=== PATIENT | female | born 1970 | race Caucasian/White ===

== ENCOUNTER → 2017-08-04 | Outpatient (CLI) | payer OTHER ==
[~2017-08-04] MED LIST: AZELASTINE137 MCG/0.; BREO IH; CETIRIZINE HCL10 MG; LEVOTHYROXINE50 MCG PO; MONTELUKAST; PROBIOTIC & AC1 EACH; RANITIDINE HCL150 MG; TRIAMTERENE; VENTOLIN HFA18 GM INH; VITAMIN D35000 UNIT
--- NOTE | 2017-08-04 15:25 | Diagnostic Imaging Report ---
PROCEDURE:X-RAY MODIFIED BARIUM SWALLOW COMPARISON:None. INDICATIONS:Dysphagia DISCUSSION:Fluoroscopic examination was performed in conjunction with speech pathology, during swallowing of a variety of thin and thick liquid consistencies. Examination showed premature spillage to the vallecula and piriform sinus with thin portion of mixed consistency. No aspiration or penetration was noted. No vallecula, piriform sinus, pharyngeal wall residue after the swallow. CONCLUSION:Swallow function within functional limits. No aspiration or penetration. Please see the report from speech pathology for complete details. Guillaume Enriquez M.D. Dictated by: Guillaume Enriquez M.D. on 08/04/2017 at 15:33 Electronically approved by: Guillaume Enriquez M.D. on 08/04/2017 at 15:33
== END ==
LOC: DX 10:46
PROVIDERS: ATTEND Internal Medicine Gastroenterology
DX: R13.10 Dysphagia, unspecified (principal)
CPT/HCPCS: 74230